=== PATIENT | female | born 1950 | race Caucasian/White ===

== ENCOUNTER → 2017-09-05 | Outpatient (CLI) | payer MEDICARE, BC | END | disposition home or self-care (01) | LOC: RADMRIMAIN 17:36 | PROVIDERS: ATTEND Psychiatry & Neurology Neurology | DX: Z53.9 Procedure and treatment not carried out, unspecified reason (principal) ==

== ENCOUNTER 2018-06-01 15:37 | Emergency (ER) | payer MEDICARE, BC ==
--- NOTE | 2018-06-01 15:57 | ED ---
General Adult HPI - General Stated complaint: Cardiac Arrest - History of Present Illness Initial comments: Dictation was produced using [employer] dictation software. please excuse any grammatical, word or spelling errors. Chief Complaint: 67-year-old female with cardiac arrest. History of Present Illness: This 67 year old female presents with cardiac arrest. Patient was brought in by EMS. According to EMS patient had undergone CPR for approximately one hour prior to arrival. EMS reports that they noted V. fib on the monitor. She did received 2 shocks. She then went into pulseless electrical activity. Patient was placed on Luís device transferred to emergency department. Patient was a witnessed arrest. EMS on scene reports that she was agonal breathing prior to the initiation of CPR. Review of Systems ROS Statement: Those systems with pertinent positive or pertinent negative responses have been documented in the HPI. ROS Other: All systems not noted in ROS Statement are negative. General Exam - General Exam Comments Initial Comments: PHYSICAL EXAM: General Impression: Obtunded HEENT: Normocephalic atraumatic, fixed and dilated pupils Chest: Breath sounds to bagging symmetrical bilaterally Abdomen: Obese, soft Procedures - Intubation Time Out Performed: Yes Laryngoscope: Sanders Size: 4 Assist Device Used: Bougie ET Tube Size: 8 ET Tube Uncuffed: No Tube Secured Depth (cm): 22 Tube Secured Location: teeth Patient Tolerated Procedure: well Intubation Complications: none Medical Decision Making - Medical Decision Making ED course: 67-year-old female presents after cardiac arrest. According to EMS a witnessed ventricular fibrillation on monitor. Patient did receive 2 shocks. Endotracheal intubation was performed. ROSC was not obtained. Patient was continued on CPR for approximately 10 minutes. Bedside ultrasound showed no cardiac activity. was brought to the back. Resuscitation efforts were discontinued in agreement with . Time of 1549 Disposition Clinical Impression: Cardiac arrest Disposition: Condition: Undetermined Referrals: Nonstaff,Physician [Primary Care Provider] - 1-2 days Time of Disposition: 15:57 Preliminary Cause of : cardiac arrest
== END 2018-06-01 22:01 | disposition expired ==
LOC: EC 15:37
DX: I46.9 Cardiac arrest, cause unspecified (principal)
CPT/HCPCS: 31500; 92950; 99285